=== PATIENT | male | born 2000 ===

== ENCOUNTER 2023-03-15 05:25 | Emergency (ER) | payer BC ==
[2023-03-15] MEDS ORDERED: Sodium Chloride 0.9% 1,000 ML IV ONE (05:30)
[2023-03-15] MEDS ORDERED: Ketorolac 30 MG/ML SDV IVPUSH ONE (05:30)
[2023-03-15] MEDS ORDERED: HYDROmorphone 0.5 MG/0.5 ML Syringe IVPUSH ONE ×2 (05:40→06:12)
[2023-03-15] MEDS ORDERED: Lactated Ringers 1,000 ML IV ONE (06:15)
[2023-03-15] MEDS ORDERED: Ondansetron 4 MG/2 ML SDV IVPUSH ONE (06:15)
[2023-03-15] MEDS ORDERED: Take Home: Acetaminophen/HYDROcodone 325-5 MG, 2 Tab Pack PO ONE (07:05)
[2023-03-15 15:17] LABS: BLOOD UREA NITROGEN,BUN 25 mg/dL (7-18); CARBON DIOXIDE,CO2 26 mmol/L (21-32); CHLORIDE,CL 101 mEq/L (98-106); CREATININE 1.1 mg/dL (0.7-1.3); ESTIMATED GFR 98 mL/min (>=60); GLUCOSE RANDOM 111 mg/dL (75-99); POTASSIUM,K 3.3 mEq/L (3.5-5.0); SODIUM,NA 139 mEq/L (136-145)
[2023-03-15 15:18] LABS: ALANINE AMINOTRANSFERASE,ALT 26 U/L (12-78); ALKALINE PHOSPHATASE 66 U/L (46-116); APPEARANCE,URINE CLEAR (CLEAR); ASPARTATE AMNIOTRANSFERASE,AST 25 U/L (15-37); BILIRUBIN TOTAL 0.5 mg/dL (0.0-1.0); BILIRUBIN,URINE SMALL (NEGATIVE); C-REACTIVE PROTEIN 0.06 mg/dL (<=0.50); CALCIUM 8.7 mg/dL (8.4-10.1); COLOR,URINE AMBER (YELLOW); GLUCOSE,URINE NEGATIVE (NEGATIVE); KETONES,URINE 40 mg/dL (NEGATIVE); PH,URINE 6.5 (4.5-8.0); PROTEIN TOTAL,TP 6.9 g/dL (6.4-8.2); PROTEIN,URINE 100 mg/dL (NEGATIVE)
[2023-03-15 15:24] LABS: LEUKOCYTE ESTERASE,URINE NEGATIVE (NEGATIVE); NITRITE,URINE NEGATIVE (NEGATIVE); OCCULT BLOOD,URINE LARGE (NEGATIVE); UROBILINOGEN,URINE 0.2 EU/dL (0.2-1.0)
[2023-03-15 15:25] LABS: BACTERIA,URINE FEW /HPF (NOT SEEN); EPITHELIAL CELLS,URINE OCCASIONAL /HPF (NOT SEEN); MUCUS,URINE FEW /HPF (NOT SEEN); RBC,URINE >100 /HPF (0-5)
[2023-03-15 15:26] LABS: HEMATOCRIT 42.3 % (42.0-52.0); HEMOGLOBIN 14.5 g/dL (14.0-18.0); MEAN CORPUSCULAR HGB CONC 34.3 g/dL (32.0-36.0); MEAN CORPUSCULAR VOLUME 87.6 fL (83.0-97.0); PLATELET COUNT,PLT 252 10^3/uL (150-400); RED BLOOD CELL COUNT 4.83 x10^6/uL (4.50-6.00); WHITE BLOOD CELL COUNT,WBC 9.2 10^3/uL (4.0-11.0)
[2023-03-15 15:27] LABS: BASOPHILS ABSOLUTE AUTO 0.03 10^3/uL (0.00-0.50); BASOPHILS PERCENT AUTO 0.3 % (0-1); EOSINOPHILS ABSOLUTE AUTO 0.12 10^3/uL (0.00-1.50); EOSINOPHILS PERCENT AUTO 1.3 % (0-6); LYMPHOCYTES ABSOLUTE AUTO 1.63 10^3/uL (0.60-5.00); LYMPHOCYTES PERCENT AUTO 17.7 % (24-44); MONOCYTES ABSOLUTE AUTO 0.49 10^3/uL (0.00-1.50); MONOCYTES PERCENT AUTO 5.3 % (0-10); NEUTROPHILS ABSOLUTE AUTO 6.94 x10^3/uL (1.80-8.00); NEUTROPHILS PERCENT AUTO 75.3 % (41-71)
== END 2023-03-15 07:05 | disposition home or self-care (01) ==
LOC: CC.ED 05:25
DX: N20.0 Calculus of kidney (principal); R31.9 Hematuria, unspecified
CPT/HCPCS: 36415; 74176; 80053; 81001; 85025; 86140; 87086; 96374; 96375; 96376; 99284; 99284-25; A9270-GY; J1170; J1885; J2405; J7030; J7120